=== PATIENT | female | born 1930 | race Caucasian/White ===

== ENCOUNTER 2016-12-06 12:45 | Outpatient (CLI) | payer MEDICARE, OTHER ==
[2014-09-06 11:27] VITALS: BP 144/53
[2016-12-06 13:07] LABS: BASOPHILS % 0.7 (0.0-1.5); EOSINOPHILS % 1.3 % (0.0-6.8); MONOCYTES % 13.7 % (0.0-11.0); NEUTROPHILS # 2.5 # k/uL (1.4-7.7)
[2016-12-06 13:46] LABS: eGFR (African) > 60; eGFR (Non-African) > 60
== END 2016-12-06 12:46 ==
LOC: LAB 12:45
PROVIDERS: ATTEND Family Medicine
DX: M85.89 Other specified disorders of bone density and structure, multiple sites (principal)
CPT/HCPCS: 36415; 80048; 82306; 83970; 85025

== ENCOUNTER 2017-02-07 12:45 | Outpatient (CLI) | payer MEDICARE, OTHER ==
[2014-09-06 11:27] VITALS: BP 144/53
--- NOTE | 2017-02-07 15:11 | Diagnostic Imaging Report ---
JANEE IGLESIAS [facility] [address] [address] Report Submission Date: Feb 07, 2017 1:18:00 PM CDT Patient Study Name: GILL LAST Date: Feb 07, 2017 12:54:42 PM CDT Modality Type: CR Gender: F Description: LOWER EXTREMITY : 30 Institution: [facility] Physician: JANEE IGLESIAS Examination: Plain film foot History: Trauma Findings: 3 views of the foot demonstrates osteopenia. No fracture or dislocation. Articular degenerative changes. Calcaneal spurs. No soft tissue swelling. No joint effusion. Impression: Osteopenia and degenerative changes. No fracture. Electronically signed on Feb 07, 2017 1:18:00 PM CDT by: Paul VALVERDE
== END 2017-02-07 12:46 ==
LOC: RAD 12:45
PROVIDERS: ATTEND Family Medicine
DX: M79.672 Pain in left foot (principal)
CPT/HCPCS: 73630

== ENCOUNTER 2017-05-10 11:55 | Outpatient (CLI) | payer MEDICARE, OTHER ==
[2014-09-06 11:27] VITALS: BP 144/53
[2017-05-10 12:49] LABS: eGFR (African) > 60; eGFR (Non-African) > 60
== END 2017-05-10 12:00 ==
LOC: LAB 11:55
PROVIDERS: ATTEND Family Medicine
DX: I10 Essential (primary) hypertension (principal)
CPT/HCPCS: 36415; 80053; 80061

== ENCOUNTER 2017-06-06 14:22 | Emergency (ER) | payer MEDICARE, OTHER ==
--- NOTE | 2017-06-06 14:47 | ED Physician Documentation ---
General Adult - HISTORIAN Historian: patient - HPI Stated Complaint: L eye redness Chief Complaint: General Adult Onset: hours Timing: still present Severity: mild Further Comments: yes (Pt is an 87 yo female with L eye redness. Pt awoke with this condition. She does not recall injuring her eye. It is not painful. Vision is unaffected. Pt takes a baby aspirin daily for intermittent afib. Pt reports easy bruising. She is not on coumadin.) - ROS CONST: no problems EYES/ENT: other (L eye red/bloody) CVS/RESP: none GI/: none MS/SKIN/LYMPH: other (easy bruising) - PAST HX Past History: other (Depression, HTN, intermittent afib) Surgeries/Procedures: other (appendectomy, hysterectomy, ortho surgery) Allergies/Adverse Reactions: Allergies Allergy/AdvReac Type Severity Reaction Status Date / Time cephalexin monohydrate Allergy Verified 06/06/17 14:39 [From Keflex] Penicillins AdvReac Intermediate Anaphylaxis Verified 06/06/17 14:39 Home Medications: Ambulatory Orders Medication Instructions Recorded Aspirin [Aspir 81] 81 mg PO DAILY u2 12/06/16 Sotalol HCl [Sotalol] 80 mg PO DAILY 06/06/17 Zolpidem Tartrate [Ambien] 5 mg PO HS 06/06/17 predniSONE [Deltasone] 10 mg PO HS 06/06/17 - SOCIAL HX Smoking History: non-smoker - FAMILY HX Family History: No - VITAL SIGNS Vital Signs: Vital Signs Temp Pulse Resp BP Pulse Ox 98.7 F 72 20 124/102 95 06/06/17 14:33 06/06/17 14:33 06/06/17 14:33 06/06/17 14:33 06/06/17 14:33 - REVIEWED ASSESSMENTS Nursing Assessment Reviewed: Yes Vitals Reviewed: Yes General Adult Physical Exam - PHYSICAL EXAM GENERAL APPEARANCE: no distress EENT: other (subconjunctival hemorrhage L eye) NECK: normal inspection, supple RESPIRATORY: no resp distress, chest non-tender, breath sounds normal CVS: reg rate & rhythm, heart sounds normal BACK: normal inspection, no CVA tenderness SKIN: warm/dry, other (2 patches of ecchymosis L wrist) EXTREMITIES: non-tender, normal range of motion, no evidence of injury NEURO: oriented X3, motor nml, sensation nml Discharge Clincal Impression: Subconjunctival hemorrhage of left eye Referrals: Kentrell Forde MD [Primary Care Provider] - Condition: Good Disposition: 01 HOME, SELF-CARE Decision to Admit: NO Decision Time: 14:59
[2017-06-06 15:04] VITALS: BP 164/84
== END 2017-06-06 15:03 | disposition home or self-care (01) ==
LOC: ED 14:22
DX: H11.32 Conjunctival hemorrhage, left eye (principal)
CPT/HCPCS: 99283

== ENCOUNTER 2017-06-17 11:22 | Outpatient (CLI) | payer MEDICARE, OTHER ==
--- NOTE | 2017-06-17 13:52 | Diagnostic Imaging Report ---
JANEE IGLESIAS [facility] [address] [facility].[address] [address] Report Submission Date: Jun 17, 2017 12:03:50 PM CLINICAL STAFF RN Patient Study Name: GILL LAST Date: Jun 17, 2017 11:41:15 AM CLINICAL STAFF RN Modality Type: CR Gender: F Description: SPINE : 30 Institution: [facility] Physician: JANEE IGLESIAS Examination: Plain film lumbar spine History: Back discomfort Findings: 3 views of the lumbar spine demonstrates generalized osteopenia. No anterior compression. Osteophyte formation and disc space narrowing. Facet degenerative changes. Atherosclerotic disease involving the abdominal aorta and iliac vessels. Curvature to the right. Impression: Curvature, osteopenia, and degenerative changes. No anterior compression deformity. Electronically signed on Jun 17, 2017 12:03:50 PM CLINICAL STAFF RN by: Paul VALVERDE
== END 2017-06-17 11:23 ==
LOC: RAD 11:22
PROVIDERS: ATTEND Family Medicine
DX: M54.5 Low back pain (principal)
CPT/HCPCS: 72100

== ENCOUNTER 2017-06-19 11:49 | Emergency (ER) | payer MEDICARE, OTHER ==
--- NOTE | 2017-06-19 11:51 | ED Physician Documentation ---
General Adult - HISTORIAN Historian: patient - HPI Stated Complaint: fell at the hotel Chief Complaint: Fall Onset: hours (1) Timing: still present Severity: moderate Further Comments: yes (she states the area that is used to step into the front of the hotel has a uneven ledge where they placed a mat and her heel got caught on the mat and she fell. She fell on her head and right shoulder. She did not loose conciousness. She has pain in her left hip she is not sure if that was from fall or before. She is A&O she denies any dizziness . She states her right arm is a "mild pain" and her head is aching) Last known Well Code/Unknown Code: Unknown - ROS CONST: no problems. denies: fever, sweating, recent illness EYES/ENT: denies: problems with vision CVS/RESP: shortness of breath (she states she is always short of breath due to a lung disease from allergic reaction years ago ). denies: chest pain GI/: denies: vomiting, nausea MS/SKIN/LYMPH: none NEURO/PSYCH: headache. denies: dizziness, tingling - PAST HX Past History: other ("lots do you have all day" ) Surgeries/Procedures: other (knee ) Immunizations: referred to PCP Allergies/Adverse Reactions: Allergies Allergy/AdvReac Type Severity Reaction Status Date / Time cephalexin monohydrate Allergy Verified 06/06/17 14:39 [From Keflex] Penicillins AdvReac Intermediate Anaphylaxis Verified 06/06/17 14:39 Home Medications: Ambulatory Orders Medication Instructions Recorded Aspirin [Aspir 81] 81 mg PO DAILY u2 12/06/16 Sotalol HCl [Sotalol] 80 mg PO DAILY 06/06/17 Zolpidem Tartrate [Ambien] 5 mg PO HS 06/06/17 predniSONE [Deltasone] 10 mg PO HS 06/06/17 - SOCIAL HX Smoking History: non-smoker Alcohol Use: none Drug Use: none - FAMILY HX Family History: No - VITAL SIGNS Vital Signs: Vital Signs Temp Pulse Resp BP Pulse Ox 97.3 F L 60 20 197/82 96 06/19/17 11:50 06/19/17 13:54 06/19/17 13:54 06/19/17 13:54 06/19/17 13:54 - REVIEWED ASSESSMENTS Nursing Assessment Reviewed: Yes Vitals Reviewed: Yes ED Results Lab/Radiology - Radiology Radiology Impressions: Examination: CT head without contrast History: Fall Comparison exam: None available Technique: Noncontrast head CT protocol. Findings: Ventricles and sulci are prominent, though consistent for patient age. Cerebrocerebellar parenchyma demonstrates periventricular low attenuation consistent with small vessel disease. No evidence for parenchymal hemorrhage. No evidence for mass or mass effect. No midline shift. No extra axial fluid collections. Partial visualization of the paranasal sinuses, mastoid air cells, orbits, skull and scalp without gross irregularity. Right frontal soft tissue hematoma. Streak artifact from dental hardware. Impression: Age related changes. No acute parenchymal process. No hemorrhage. Right frontal soft tissue hematoma. Electronically signed on Jun 19, 2017 12:43:27 PM BUSINESS STRATEGIST by: Paul Hyman Examination: Plain film pelvis/hip History: Hip discomfort Comparison exams: None provided Findings: 3 views of the pelvis and left hip demonstrates osteopenia. Cortical margins are intact. No evidence for fracture line. Superior acetabular spurring. Lumbar degenerative changes. Moderate right hip articular degenerative changes. Impression: Osteopenia and degenerative changes. No evidence for fracture. Electronically signed on Jun 19, 2017 1:08:52 PM BUSINESS STRATEGIST by: Paul Hyman Examination: Plain film shoulder History: Fall Comparison exams: None provided Findings: 2 views of the shoulder demonstrate normal cortical margins. Osteopenia. No evidence for fracture or dislocation. Acromioclavicular joint degenerative changes. No soft tissue abnormality. Impression: Osteopenia and degenerative changes. No fracture. Electronically signed on Jun 19, 2017 1:11:02 PM BUSINESS STRATEGIST by: Paul Hyman - Orders Orders: ED Orders Category Date Time Status CT BRAIN W/O CONTRAST Stat Exams 06/19/17 Completed LT HIP 2VIEW COMPLETE [RAD] Stat Exams 06/19/17 Completed SHOULDER BLADE X-RAY [SCAPULA COMPLETE] [RAD] Stat Exams 06/19/17 Completed General Adult Physical Exam - PHYSICAL EXAM GENERAL APPEARANCE: no distress EENT: HARPER, TM's nml, other (large hematoma on and above right eye ) NECK: normal inspection RESPIRATORY: no resp distress, chest non-tender, breath sounds normal CVS: reg rate & rhythm, heart sounds normal, equal pulses, no murmur ABDOMEN: soft, no organomegaly, normal bowel sounds SKIN: warm/dry EXTREMITIES: other (pain with passive and active ROM right shoulder (pulses + and cap refill +) ) NEURO: oriented X3, CN's nml as tested, motor nml, sensation nml, mood/affect nml, cognition normal Discharge Clincal Impression: Fall Qualifiers: Encounter type: initial encounter Qualified Code(s): W19.XXXA - Unspecified fall, initial encounter Concussion Qualifiers: Encounter type: initial encounter Loss of consciousness presence/duration: without LOC Qualified Code(s): S06.0X0A - Concussion without loss of consciousness, initial encounter Referrals: Kentrell Forde MD [Primary Care Provider] - 2 Days Condition: Stable Disposition: 01 HOME, SELF-CARE Decision to Admit: NO Date of Decison to Admit: 06/19/17 Decision Time: 13:15
--- NOTE | 2017-06-19 13:11 | Diagnostic Imaging Report ---
ELLY PALOMO [facility] [address] [facility] [address] [place], [place]. [address] Report Submission Date: Jun 19, 2017 1:08:52 PM IRRIGATION WORKER Patient Study Name: GILL LAST Date: Jun 19, 2017 12:41:07 PM IRRIGATION WORKER Modality Type: CR Gender: F Description: PELVIS : 30 Institution: [facility] Physician: ELLY PALOMO Examination: Plain film pelvis/hip History: Hip discomfort Comparison exams: None provided Findings: 3 views of the pelvis and left hip demonstrates osteopenia. Cortical margins are intact. No evidence for fracture line. Superior acetabular spurring. Lumbar degenerative changes. Moderate right hip articular degenerative changes. Impression: Osteopenia and degenerative changes. No evidence for fracture. Electronically signed on Jun 19, 2017 1:08:52 PM IRRIGATION WORKER by: Paul VALVERDE
--- NOTE | 2017-06-19 13:16 | Diagnostic Imaging Report ---
ELLY PALOMO [facility] [address] [facility] [address] [place], [place]. [address] Report Submission Date: Jun 19, 2017 12:43:27 PM CHRISTMAS TREE GROWER Patient Study Name: GILL LAST Date: Jun 19, 2017 12:16:49 PM CHRISTMAS TREE [employer]OWER Modality Type: CT\SR Gender: F Description: CT BRAIN W/O CONTRAST : 30 Institution: [facility] Physician: ELLY PALOMO Examination: CT head without contrast History: Fall Comparison exam: None available Technique: Noncontrast head CT protocol. Findings: Ventricles and sulci are prominent, though consistent for patient age. Cerebrocerebellar parenchyma demonstrates periventricular low attenuation consistent with small vessel disease. No evidence for parenchymal hemorrhage. No evidence for mass or mass effect. No midline shift. No extra axial fluid collections. Partial visualization of the paranasal sinuses, mastoid air cells, orbits, skull and scalp without gross irregularity. Right frontal soft tissue hematoma. Streak artifact from dental hardware. Impression: Age related changes. No acute parenchymal process. No hemorrhage. Right frontal soft tissue hematoma. Electronically signed on Jun 19, 2017 12:43:27 PM CHRISTMAS TREE GROWER by: Paul VALVERDE
--- NOTE | 2017-06-19 13:17 | Diagnostic Imaging Report ---
ELLY PALOMO [facility] [address] [facility] [address] [address] Report Submission Date: Jun 19, 2017 1:11:02 PM PROCESSES CHEMICAL DESIGN ENGINEER Patient Study Name: GILL LAST Date: Jun 19, 2017 12:37:01 PM PROCESSES CHEMICAL DESIGN ENGINEER Modality Type: CR Gender: F Description: SHOULDER : 30 Institution: [facility] Physician: ELLY PALOMO Examination: Plain film shoulder History: Fall Comparison exams: None provided Findings: 2 views of the shoulder demonstrate normal cortical margins. Osteopenia. No evidence for fracture or dislocation. Acromioclavicular joint degenerative changes. No soft tissue abnormality. Impression: Osteopenia and degenerative changes. No fracture. Electronically signed on Jun 19, 2017 1:11:02 PM PROCESSES CHEMICAL DESIGN ENGINEER by: Paul VALVERDE
[2017-06-19 13:57] VITALS: BP 197/82
== END 2017-06-19 13:54 | disposition home or self-care (01) ==
LOC: ED 11:49
DX: M25.511 Pain in right shoulder (principal); S06.0X0A Concussion without loss of consciousness, initial encounter; W19.XXXA Unspecified fall, initial encounter; Y93.9 Activity, unspecified; Y99.9 Unspecified external cause status
CPT/HCPCS: 70450; 73010; 99283

== ENCOUNTER 2017-06-27 11:23 | Outpatient (CLI) | payer MEDICARE, OTHER ==
--- NOTE | 2017-06-27 14:03 | Diagnostic Imaging Report ---
JANEE IGLESIAS [facility] [address] [facility].[address] [address] Report Submission Date: Jun 27, 2017 12:11:32 PM AVIATION MEDICINE SPECIALIST Patient Study Name: GILL LAST Date: Jun 27, 2017 11:42:19 AM AVIATION MEDICINE SPECIALIST Modality Type: CR Gender: F Description: CHEST : 30 Institution: [facility] Physician: JANEE IGLESIAS Examination: PA and lateral chest. History: Evaluate lung bah. Comparison exam: None provided Findings: PA lateral chest demonstrate a normal cardiac and mediastinal silhouette. Tortuous aorta with vascular calcifications involve the aortic arch. Chronic appearing interstitial changes. No focal infiltrate. No blunting of the costophrenic margins. Mild posterior sulci blunting. Osseous structures are appropriate for age. Impression: Chronic parenchymal changes. No acute pulmonary process. Electronically signed on Jun 27, 2017 12:11:32 PM AVIATION MEDICINE SPECIALIST by: Paul VALVERDE
--- NOTE | 2017-06-27 14:04 | Diagnostic Imaging Report ---
JANEE IGLESIAS [facility] [address] [facility].[address] [address] Report Submission Date: Jun 27, 2017 12:13:35 PM PRINT DECORATOR Patient Study Name: GILL LAST Date: Jun 27, 2017 11:49:06 AM PRINT DECORATOR Modality Type: CR Gender: F Description: LOWER EXTREMITY : 30 Institution: [facility] Physician: JANEE IGLESIAS Examination: Plain film knee History: Knee discomfort. Cold injury. Comparison exam: None available for direct review. Findings: 3 views of the knee demonstrates prosthetic device in place. Proximal tibial fixation hardware. Old proximal tibial fracture line with callus formation. No acute appearing fracture line. Impression: Prosthetic device and fixation hardware in place. Old proximal tibial fracture. No acute appearing fracture. Electronically signed on Jun 27, 2017 12:13:35 PM PRINT DECORATOR by: Paul VALVERDE
--- NOTE | 2017-06-27 14:05 | Diagnostic Imaging Report ---
JANEE IGLESIAS [facility] [address] [facility].[address] [address] Report Submission Date: Jun 27, 2017 12:19:17 PM CLOTH EDGE SINGER Patient Study Name: GILL LAST Date: Jun 27, 2017 11:57:29 AM CLOTH EDGE SINGER Modality Type: CR Gender: F Description: UPPER EXTREMITY : 30 Institution: [facility] Physician: JANEE IGLESIAS Examination: Plain film hand History: Hand discomfort Comparison exams: None available Findings: 3 views the hand demonstrates diffuse osteopenia. Articular degenerative disease, most pronounced at the 1st carpal metacarpal articulation. Small lucency involving the base 5th metacarpal. No displacement. Impression: Osteopenia and degenerative changes. Likely nondisplaced fracture base 5th metacarpal. Electronically signed on Jun 27, 2017 12:19:17 PM CLOTH EDGE SINGER by: Paul VALVERDE
== END 2017-06-27 12:20 ==
LOC: RAD 11:23
PROVIDERS: ATTEND Family Medicine
DX: R07.89 Other chest pain (principal); M25.561 Pain in right knee; M79.641 Pain in right hand
CPT/HCPCS: 71020; 73130; 73562

== ENCOUNTER 2017-09-09 08:58 | Day surgery (SDC) | payer MEDICARE, OTHER ==
--- NOTE | 2017-09-09 15:09 | GI Report ---
REFERRING PHYSICIAN: Dr. Kentrell Forde WELT SLASHER: Dontae Landon MD PROCEDURE MEDICATION: Propofol as per anesthesia. 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 It was felt to be about 1.5 cm to 2 cm in size. The pathology came back as tubulovillous, no high-grade dysplasia. The other polyps were adenomatous. That was in September 2014. She comes back for a 3-year follow up. She has kind of a sensation like she feels something in the rectum, occasionally incontinence of stool. PROCEDURE PERFORMED: Colonoscopy and polypectomies. PROCEDURE: An [employer] video colonoscope was advanced to the rectum. 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 It was a very slow cautious procedure. At the hepatic flexure , she had a 3 mm polyp removed with a cold snare. The colonoscope was slowly advanced. The appendiceal orifice and ileocecal valve were normal. On slow withdrawal, the cecum and ascending colon with intraluminal lesions noted. The polyp was removed near the hepatic flexure as described. The descending colon and sigmoid with severe diverticular disease of the colon. Multiple large -mouth diverticula. In the rectum, at that same area at about 3 cm above the anal verge, she has got this 2 cm villous-appearing lesion that we took off in 5 pieces. We appeared to be down to the baseline, but again, it is hard to say. Pending the pathology of the polyp, options are a surgical referral, surgical referral for a mucosal resection with Dr. Amaya at [facility], or re-look at her colon in 2 years pending the pathology and what her health is like at that time for a repeat polypectomy at this site. cc: Dr. Kentrell VALVERDE
== END 2017-09-09 09:00 ==
LOC: OPSURG 08:58
PROVIDERS: ATTEND Internal Medicine Gastroenterology
DX: D12.3 Benign neoplasm of transverse colon (principal); D12.8 Benign neoplasm of rectum; K57.30 Diverticulosis of large intestine without perforation or abscess without bleeding; I51.9 Heart disease, unspecified; I10 Essential (primary) hypertension; J44.1 Chronic obstructive pulmonary disease with (acute) exacerbation
CPT/HCPCS: 45385; J2001; J2704; J7120; S1016

== ENCOUNTER 2017-11-07 17:08 | Outpatient (CLI) | payer MEDICARE, OTHER ==
[2017-11-07 17:18] LABS: MEAN CORPUSCULAR HEMOGLOBIN 30.7 pg (28.0-34.0); MEAN CORPUSCULAR VOLUME 91.9 fl (80.0-100.0)
[2017-11-07 18:33] LABS: MONOCYTES % 26 % (0-11); SEGMENTED NEUTROPHILS % 20 % (39-79)
[2017-11-07 18:34] LABS: BASOPHILS % 1 % (0-2); EOSINOPHILS % 0 % (0-7); HYPOCHROMASIA 1+ (NEGATIVE)
[2017-11-07 19:01] LABS: MONOCYTES % 35.3 % (0.0-11.0); NEUTROPHILS # 1.8 # k/uL (1.4-7.7)
== END 2017-11-07 17:10 ==
LOC: LABRHC 17:08
PROVIDERS: ATTEND Family Medicine
DX: M79.81 Nontraumatic hematoma of soft tissue (principal); T14.8XXA Other injury of unspecified body region, initial encounter; Y99.9 Unspecified external cause status
CPT/HCPCS: 85025

== ENCOUNTER 2017-11-25 11:29 | Outpatient (CLI) | payer MEDICARE, OTHER ==
[2017-11-25 12:07] LABS: MEAN CORPUSCULAR HEMOGLOBIN 31.1 pg (28.0-34.0); MEAN CORPUSCULAR VOLUME 95.1 fl (80.0-100.0)
[2017-11-25 12:29] LABS: SEGMENTED NEUTROPHILS % 16 % (39-79)
[2017-11-25 12:30] LABS: ANISOCYTOSIS 1+ (NEGATIVE); BASOPHILS % 1 % (0-2); HYPOCHROMASIA 1+ (NEGATIVE); MONOCYTES % 33 % (0-11)
== END 2017-11-25 11:30 ==
LOC: LAB 11:29
PROVIDERS: ATTEND Family Medicine
DX: D69.6 Thrombocytopenia, unspecified (principal)
CPT/HCPCS: 36415; 85025

== ENCOUNTER 2017-12-10 14:52 | Emergency (ER) | payer MEDICARE, OTHER ==
[2017-12-10 15:11] VITALS: BP 202/69
--- NOTE | 2017-12-10 15:23 | ED Physician Documentation ---
Lower Extremity Injury - HISTORIAN Historian: patient - HPI Stated Complaint: R foot bruising Chief Complaint: Lower Extremity Injury (contusion to foot) Additional Information: Patient states that a lid for a neville fell on her left foot area several days ago. Has developed a lot of bruising to the area and would like ot have it evaluated. Is having some pain with ambulation but is getting along fairly well. No other injury noted. She is taking ASA. Onset: days ago Where: home Context: direct blow Associated Symptoms:: tingling, swelling. denies: numbness distally, snapping sensation, popping sensation Modifying Factors:: other (weight bearing) - ROS CONST: no problems CVS/RESP: none GI/: denies: problems urinating, nausea, vomiting MS/SKIN/LYMPH: none - PAST HX Past History: other (HTN, OA, Diverticuli, Allergic Rhinitis, Anaphalaxis to Keflex) Allergies/Adverse Reactions: Allergies Allergy/AdvReac Type Severity Reaction Status Date / Time cephalexin monohydrate Allergy Verified 12/10/17 15:10 [From Keflex] Penicillins AdvReac Intermediate Anaphylaxis Verified 12/10/17 15:10 Home Medications: Ambulatory Orders Medication Instructions Recorded Aspirin [Aspir 81] 81 mg PO DAILY u2 12/06/16 Sotalol HCl [Sotalol] 80 mg PO DAILY 06/06/17 predniSONE [Deltasone] 10 mg PO HS 06/06/17 - SOCIAL HX Smoking History: non-smoker Alcohol Use: none Drug Use: none - FAMILY HX Family History: no significant history - VITAL SIGNS Vital Signs: Vital Signs Temp Pulse Resp BP Pulse Ox 96.7 F L 70 16 202/69 95 12/10/17 14:55 12/10/17 14:55 12/10/17 14:55 12/10/17 14:55 12/10/17 14:55 - REVIEWED ASSESSMENTS Nursing Assessment Reviewed: Yes Vitals Reviewed: Yes ED Results Lab/Radiology - Radiology Radiology Impressions: Foot 3 view History: PT STATES LID FROM A COOKING POT FELL ON FOOT X4 DAYS AGO. PAIN IN MIDFOOT. (Hx) Findings: 3 views of the right foot demonstrates diffuse osteopenia. Articular degenerative changes. No displaced fracture lucency. No gross soft tissue abnormality. - Orders Orders: ED Orders Category Date Time Status FOOT 3 VIEWS OR MORE [RAD] Stat Exams 12/10/17 Ordered CBC/PLATELET/DIFF Routine Lab 12/10/17 16:40 Received Ondansetron HCl/Pf [Zofran 4 mg/2 ml] Med 12/10/17 16:36 Stop Req 4 mg IVP NOW ONE fentaNYL CITRATE/PF [Duragesic] Med 12/10/17 16:37 Stop Req 50 mcg IVP NOW ONE Lower Extremities Injury Phy - Physical Exam General Appearance: no acute distress, alert Hips: bilateral hip: non-tender, normal inspection, normal range of motion, no evidence of injury Legs: bilateral: non-tender, normal inspection, normal range of motion, no evidence of injury Knees: right: non-tender, left: soft tissue tenderness, bilateral: normal inspection, normal range of motion, no evidence of injury Ankle: left: non-tender, normal inspection, normal range of motion, no evidence of injury Foot: right foot: non-tender, normal inspection, normal range of motion, no evidence of injury, left foot: ecchymosis, pain, soft tissue tenderness, swelling (over dorsum of foot), N/A: deformity (none) Ligaments: No: pain on anterior drawer, laxity on anterior drawer Gait: limited by pain Neuro/Vascular/Tendon: no vascular compromise, motor nml, sensation nml, abnml color, abnml warmth, abnml cap refill, pulse deficit Neck/Back: nml inspection, non-tender Resp/CVS: chest non-tender, breath sounds nml, heart sounds nml, no resp. distress, lungs clear Abdomen: non-tender Discharge Clincal Impression: Contusion of foot, left Qualifiers: Encounter type: initial encounter Qualified Code(s): S90.32XA - Contusion of left foot, initial encounter Referrals: Kentrell Forde MD [Primary Care Provider] - 2 Days Additional Instructions: Continue to monitor foot. Keep foot elevated when possible. Watch for any further problems that might develop. Condition: Stable Disposition: 01 HOME, SELF-CARE Decision to Admit: NO Date of Decison to Admit: 12/10/17 Decision Time: 16:17
[2017-12-10] MEDS ORDERED: ONDANSETRON HCL/PF 4 MG/ 2ML VIAL IVP ONE (16:36)
[2017-12-10] MEDS ORDERED: fentaNYL CITRATE/PF 100 MCG/ 2ML AMP IVP ONE (16:37)
[2017-12-10 16:45] LABS: MEAN CORPUSCULAR HEMOGLOBIN 30.6 pg (28.0-34.0); MEAN CORPUSCULAR VOLUME 94.2 fl (80.0-100.0)
--- NOTE | 2017-12-10 17:06 | Diagnostic Imaging Report ---
JANEE IGLESIAS [facility] [address] [address] Report Submission Date: December 10, 2017 4:00:03 PM CDT Patient Study Name: GILL LAST Date: December 10, 2017 3:30:15 PM CDT Modality Type: DX Gender: F Description: LOWER EXTREMITY : 30 Institution: [facility] Physician: JANEE IGLESIAS Examination: Plain film right foot History: PT STATES LID FROM A COOKING POT FELL ON FOOT X4 DAYS AGO. PAIN IN MIDFOOT. (Hx) Findings: 3 views of the right foot demonstrates diffuse osteopenia. Articular degenerative changes. No displaced fracture lucency. No gross soft tissue abnormality. Impression: Osteopenia and degenerative changes. No fracture lucency. Electronically signed on December 10, 2017 4:00:03 PM CDT by: Paul VALVERDE
[2017-12-10 17:19] LABS: SEGMENTED NEUTROPHILS % 25 % (39-79)
[2017-12-10 17:20] LABS: BASOPHILS % 2 % (0-2)
[2017-12-10 17:21] LABS: MONOCYTES % 24 % (0-11)
== END 2017-12-10 16:40 | disposition home or self-care (01) ==
LOC: ED 14:52
DX: S90.32XA Contusion of left foot, initial encounter (principal); W23.1XXA Caught, crushed, jammed, or pinched between stationary objects, initial encounter; Y92.9 Unspecified place or not applicable; Y93.9 Activity, unspecified; Y99.9 Unspecified external cause status
CPT/HCPCS: 73630; 85025; 96374; 96375; 99284

== ENCOUNTER 2018-01-30 11:07 | Outpatient (CLI) | payer MEDICARE, OTHER ==
[2018-01-30 11:35] LABS: BASOPHILS % 0.4 (0.0-1.5); EOSINOPHILS % 0.2 % (0.0-6.8); MEAN CORPUSCULAR HEMOGLOBIN 29.7 pg (28.0-34.0); MEAN CORPUSCULAR VOLUME 93.6 fl (80.0-100.0); MONOCYTES % 44.7 % (0.0-11.0); NEUTROPHILS # 0.9 # k/uL (1.4-7.7)
== END 2018-01-30 14:06 ==
LOC: LAB 11:07
PROVIDERS: ATTEND Family Medicine
DX: D69.6 Thrombocytopenia, unspecified (principal)
CPT/HCPCS: 85025

== ENCOUNTER 2018-03-19 19:26 | Emergency (ER) | payer MEDICARE, OTHER ==
[2018-03-19] MEDS: KETOROLAC TROMETHAMINE 30 MG/1ML VIAL IM ONE (20:21)
--- NOTE | 2018-03-19 20:50 | Diagnostic Imaging Report ---
NINOSKA MAR (RADIAL DRILL OPERATOR) - ER [facility] [address] [address] Report Submission Date: Mar 19, 2018 8:40:45 PM CDT Patient Study Name: GLIL LAST Date: Mar 19, 2018 7:46:26 PM CDT Modality Type: DX Gender: F Description: CHEST : 30 Institution: [facility] Physician: NINOSKA MAR (RADIAL DRILL OPERATOR) - ER Left ribs with PA chest. HISTORY Rib pain, fall. FINDINGS The included chest radiograph demonstrates no active pulmonary disease. The heart is enlarged. There is calcification in the thoracic aorta. Nondisplaced lateral seventh rib fractures noted. There is no abnormal bone destruction. IMPRESSION Cardiomegaly. Aortic atherosclerosis. Left seventh rib fracture. Electronically signed on Mar 19, 2018 8:40:45 PM CDT by: Milton VALVERDE
[2018-03-19 21:01] LABS: MEAN CORPUSCULAR HEMOGLOBIN 28.6 pg (28.0-34.0); MEAN CORPUSCULAR VOLUME 91.1 fl (80.0-100.0)
[2018-03-19 21:11] LABS: eGFR (Non-African) > 60
--- NOTE | 2018-03-19 21:30 | ED Physician Documentation ---
Fall - HISTORIAN Historian: patient, paramedics - [facility] Stated Complaint: Fall with left rib injury Chief Complaint: Fall Onset: just prior to arrival Where: home Context: tripped Associated Symptoms:: no loss of consciousness Location of Pain/Injury: lower back Injury to Right Extremity: none Injury to Left Extremity: none Further Comments: yes (88 year old female patient brought in by EMS. Patient states she had "a couple" of glasses of wine, tripped and fell into the fire place [facility]. Patient states she took her oxycontin prior to calling EMS.) - ROS CONST: no problems MS/SKIN/LYMPH: back pain EYES/ENT: none CVS/RESP: none GI/: denies: nausea, vomiting - PAST HX Past History: other (HTN, COPD, osteoporosis, HTN, chronic leukemia, chronic pain) Allergies/Adverse Reactions: Allergies Allergy/AdvReac Type Severity Reaction Status Date / Time cephalexin monohydrate Allergy Verified 03/19/18 19:40 [From Keflex] Penicillins AdvReac Intermediate Anaphylaxis Verified 03/19/18 19:40 Home Medications: Ambulatory Orders Medication Instructions Recorded Aspirin [Aspir 81] 81 mg PO DAILY u2 12/06/16 Sotalol HCl [Sotalol] 80 mg PO DAILY 06/06/17 predniSONE [Deltasone] 10 mg PO HS 06/06/17 - SOCIAL HX Smoking History: quit greater than 1 year Alcohol Use: heavy - FAMILY HX Family History: denies: none - VITAL SIGNS Vital Signs: Vital Signs Temp Pulse Resp BP Pulse Ox 74 16 139/54 96 03/19/18 19:30 03/19/18 19:30 03/19/18 19:30 03/19/18 19:30 - REVIEWED ASSESSMENTS Nursing Assessment Reviewed: Yes Vitals Reviewed: Yes Progress - Progress Progress: Patient with multiple complaints of pain; requesting additional narcotics. Patient presents with ETOH on board and oxycontin. Will use toradol for pain. Patient uncooperative with staff and radiology ETOH 79 At discharge patient requesting pain medication. Explained risk of mixing narcotic with ETOH. Instructed patient to use tylenol on arrival home. Patient has ambien, hydrocodone showing on external med list and has oxycontin at home. Will not prescribe additional narcotics as patient lives alone. At discharge patient stated to RN "I am going to go home and drink more wine". ED Results Lab/Radiology - Lab Results Lab Results: Lab Results 03/19/18 03/19/18 20:41 20:41 WBC 4.22 K/ul K/ul (4.00-12.00) RBC 3.25 M/ul L M/ul (3.90-5.20) Hgb 9.3 g/dL L g/dL (12.0-16.0) Hct 29.6 % L % (34.5-46.5) MCV 91.1 fl fl (80.0-100.0) MCH 28.6 pg pg (28.0-34.0) MCHC 31.4 g/dL g/dL (30.0-36.0) RDW 17.6 % H % (11.3-14.3) Plt Count 48 K/mm3 L K/mm3 (130-400) Neut % (Auto) 17.5 % L % (39.0-79.0) Lymph % (Auto) 36.0 % % (16.0-50.0) [place] % (Auto) 37.4 % H % (0.0-11.0) Eos % (Auto) 0.3 % % (0.0-6.8) Baso % (Auto) 0.3 (0.0-1.5) Neut # (Auto) 0.7 # k/uL L # k/uL (1.4-7.7) Lymph # (Auto) 1.5 # k/uL # k/uL (0.6-4.0) [place] # (Auto) 1.6 # k/uL H # k/uL (0.0-0.9) Eos # (Auto) 0.0 # k/uL # k/uL (0.0-0.6) Baso # (Auto) 0.0 # k/uL # k/uL (0.0-0.5) Reactive Lymphs % 8.6 % H % (0.0-5.0) Reactive Lymphs # 0.4 # k/uL # k/uL (0.0-0.8) Sodium 134 mmol/L L mmol/L (136-145) Potassium 3.7 mmol/L mmol/L (3.5-5.1) Chloride 108 mmol/L H mmol/L (98-107) Carbon Dioxide 26 mmol/L mmol/L (22-30) BUN 18 mg/dL H mg/dL (7-17) Creatinine 0.60 mg/dL mg/dL (0.52-1.04) Estimated Creat Clear 70 Est GFR ( Amer) > 60 (60 - ) Est GFR (Non-Af Amer) > 60 (60 - ) Glucose 95 mg/dL mg/dL (74-106) Calcium 8.8 mg/dL mg/dL (8.4-10.2) Total Bilirubin 0.2 mg/dL mg/dL (0.2-1.3) AST 25 U/L U/L (15-46) ALT 18 U/L U/L (13-69) Alkaline Phosphatase 75 U/L U/L (38-126) Total Protein 6.6 g/dL g/dL (6.3-8.2) Albumin 3.8 g/dL g/dL (3.5-5.0) Ethyl Alcohol 79.2 mg/dL H mg/dL (0.0-10.0) - Radiology Radiology Impressions: Left ribs with PA chest. HISTORY Rib pain, fall. FINDINGS The included chest radiograph demonstrates no active pulmonary disease. The heart is enlarged. There is calcification in the thoracic aorta. Nondisplaced lateral seventh rib fractures noted. There is no abnormal bone destruction. IMPRESSION Cardiomegaly. Aortic atherosclerosis. Left seventh rib fracture. Electronically signed on Mar 19, 2018 8:40:45 PM CDT by: Milton Selby - Orders Orders: ED Orders Category Date Time Status RIBS UNILATERAL W/ PA CHEST [RAD] Stat Exams 03/19/18 Completed ALCOHOL MEDICAL USE ONLY Stat Lab 03/19/18 20:41 Completed CBC/PLATELET/DIFF Stat Lab 03/19/18 20:41 Completed CMP Stat Lab 03/19/18 20:41 Completed Ketorolac Tromethamine [Toradol] Med 03/19/18 19:55 Discontinued 30 mg IM NOW ONE Fall Physical Exam - Physical Exam General Appearance: moderate distress Head: non-tender, no swelling, no obvious injury Neck: non-tender, painless ROM, trachea midline Eye: HAR[place], EOMI, lids & conjunct. nml Resp/CVS: chest non-tender, no ecchymosis, breath sounds nml, no resp. distress, heart sounds nml Abdomen: soft, no organomegaly, normal bowel sounds, no abdominal bruit, no distension Neuro: oriented x3, sensation nml, motor nml, mood/affect nml, forgeman helper nml, forgeman helper symmetrical Skin: color nml, no rash, nml palp., dry, other (hematoma noted - left lower back and rib area 6 x 7 cm area of ecchymosis) Extremities: atraumatic, pelvis stable, hips non-tender, no pedal edema, nml ROM, nml color/temp - [place] Coma Score Eyes Open: Spontaneous Speech: Oriented Motor: Obeys Commands Discharge Clincal Impression: Hematoma, ETOH abuse Rib fracture Qualifiers: Encounter type: initial encounter Rib fracture type: single rib Fracture type: closed Laterality: left Qualified Code(s): S22.32XA - Fracture of one rib, left side, initial encounter for closed fracture Fall Qualifiers: Encounter type: initial encounter Qualified Code(s): W19.XXXA - Unspecified fall, initial encounter Referrals: Kentrell Forde MD [Primary Care Provider] - 2 Days Additional Instructions: Rest Tylenol as needed for discomfort Do not drink wine or any alcohol and take your pain medications. Follow up with your primary care doctor on Saturday for reevaluation of your back. Condition: Stable Disposition: 01 HOME, SELF-CARE Decision to Admit: NO Decision Time: 21:33
[2018-03-19 22:20] VITALS: BP 128/72
[2018-03-20 07:14] LABS: SEGMENTED NEUTROPHILS % 18 % (39-79)
[2018-03-20 07:16] LABS: MONOCYTES % 38 % (0-11); TEAR DROP CELLS 1+ (NEGATIVE)
[2018-03-20 07:17] LABS: ACANTHOCYTES 2+ (NEGATIVE); OVALOCYTES 1+ (NEGATIVE)
[2018-03-20 07:18] LABS: PLT EST. CLUMPED NO RESULT
== END 2018-03-19 21:50 | disposition home or self-care (01) ==
LOC: ED 19:26
DX: S22.32XA Fracture of one rib, left side, initial encounter for closed fracture (principal); M79.81 Nontraumatic hematoma of soft tissue; W19.XXXA Unspecified fall, initial encounter; Y92.018 Other place in single-family (private) house as the place of occurrence of the external cause; Y93.9 Activity, unspecified; Y99.9 Unspecified external cause status; F10.10 Alcohol abuse, uncomplicated
CPT/HCPCS: 71101; 80053; 85025; G0480; J1885; 80320; 96372; 99284